=== PATIENT | female | born 1935 | race Caucasian/White ===

== ENCOUNTER 2016-09-10 07:59 | Outpatient (CLI) | payer MEDICARE | END 2016-09-10 08:00 | disposition home or self-care (01) | LOC: BURLAB 07:59 | PROVIDERS: ATTEND Family Medicine | DX: K52.9 Noninfective gastroenteritis and colitis, unspecified (principal) | CPT/HCPCS: 83630; 87015; 87045; 87046; 87177; 87449; 87899 ==

== ENCOUNTER 2016-10-18 09:35 | Outpatient (CLI) | payer MEDICARE | END 2016-10-18 09:36 | disposition home or self-care (01) | LOC: BURLAB 09:35 | PROVIDERS: ATTEND Obstetrics & Gynecology Gynecologic Oncology | DX: D39.8 Neoplasm of uncertain behavior of other specified female genital organs (principal) | CPT/HCPCS: 36415; 86304 ==

== ENCOUNTER 2017-04-14 13:14 | Emergency (ER) | payer MEDICARE ==
[2017-04-14 13:41] LABS: #Basophils 0.1 thou/uL (0.0-0.2); #Eosinphils 0.1 thou/uL (0.0-0.7); #Lymphocytes 2.6 thou/uL (1.20-3.40); #Monocytes 0.6 thou/uL (0.11-0.59); #Neutrophils 5.3 thou/uL (1.40-6.50); %Basophils 0.9 % (0.0-1.0); %Eosinophils 1.3 % (0.0-10.0); %Lymphocytes 29.8 % (21.0-51.0); %Monocytes 6.8 % (0.0-10.0); %Neutrophils 61.2 % (42.0-75.0); Hemoglobin 12.7 g/dL (12.0-16.0); Mean Corpuscular HGB CONC 32.6 g/dL (32.0-36.0); Mean Corpuscular Hemoglobin 28.5 pg (27.0-31.0); Mean Corpuscular Volume 87.4 fl (81.0-99.0); Mean Platelet Volume 8.3 fL (7.4-10.4); Platelet Count 246 thou/uL (130-400); RBC Distribution Width 12.1 % (11.5-14.5); Red Blood Cell (RBC) Count 4.48 mill/uL (4.20-5.40); White Blood Cell (WBC) Count 8.7 thou/uL (4.8-10.8)
[2017-04-14] MEDS ORDERED: Metoprolol Tartrate 5 MG/5 ML VIAL ONE ×2 (13:46→13:59)
[2017-04-14 13:49] LABS: PTT 27.7 SEC (22.9-36.1); Prothrombin Time 13.2 SEC (12.0-14.7)
[2017-04-14 13:50] LABS: D-Dimer Test Less than 0.27 *mcg/mL (0.27-0.43)
[2017-04-14 13:57] LABS: ALT (SGPT) 19 U/L (8-55); AST (SGOT) 28 U/L (5-34); Albumin 4.1 g/dL (3.4-4.8); Alkaline Phosphatase 57 U/L (40-150); Anion Gap 16 mmol/L (10-20); BUN (Urea Nitrogen) 19 mg/dL (9.8-20.1); Bilirubin, Total 0.4 mg/dL (0.2-1.2); Calc. Creatinine Clearance 0 mL/min (70-130); Calcium 10.3 mg/dL (7.8-10.44); Carbon Dioxide 23 mmol/L (23-31); Chloride 102 mmol/L (98-107); Estimated GFR-MDRD 67; Globulin 2.9 g/dL (2.4-3.5); Glucose 146 mg/dL (83-110); Potassium 3.7 mmol/L (3.5-5.1); Sodium 137 mmol/L (136-145)
[2017-04-14 13:58] LABS: CKMB 2.4 ng/mL (0-6.6)
[2017-04-14 14:04] LABS: Troponin I 0.389 ng/mL (< 0.028)
[2017-04-14 14:09] LABS: Critical Call Chem Troponin I 0
[2017-04-14] MEDS ORDERED: Enoxaparin Sodium 100 MG/ML SYRINGE ONE (14:33)
--- NOTE | 2017-04-14 20:50 | RAD ---
PORTABLE CHEST 04/14/17 Comparison is made with a 02/23/16 study done at [facility]. The heart size is unchanged. Dense calcification is seen in the aortic arch as before. There is no v ascular congestion, edema, or pleural effusion. Tendinous calcification is suggested around the righ t shoulder. IMPRESSION: Chronic changes but no acute findings. POS: HOME
== END 2017-04-14 15:11 | disposition short-term general hospital (02) ==
LOC: BURERS 13:14
DX: I21.4 Non-ST elevation (NSTEMI) myocardial infarction (principal); E78.5 Hyperlipidemia, unspecified; I10 Essential (primary) hypertension; Z87.891 Personal history of nicotine dependence; Z79.899 Other long term (current) drug therapy
CPT/HCPCS: 36415; 36416; 71010; 80053; 82553; 83880; 84484; 85025; 85379; 85610; 85730; 93005; 94760; 96372; 96374; 96375; J1650

== ENCOUNTER 2018-01-21 11:38 | Emergency (ER) | payer MEDICARE ==
[2018-01-21 12:32] LABS: PTT 30.1 SEC (22.9-36.1)
[2018-01-21 12:38] LABS: #Basophils 0.1 thou/uL (0.0-0.2); #Eosinphils 0.1 thou/uL (0.0-0.7); #Lymphocytes 2.1 thou/uL (1.20-3.40); #Monocytes 0.5 thou/uL (0.11-0.59); #Neutrophils 3.4 thou/uL (1.40-6.50); %Basophils 1.4 % (0.0-1.0); %Eosinophils 2.2 % (0.0-10.0); %Lymphocytes 33.7 % (21.0-51.0); %Neutrophils 54.7 % (42.0-75.0); ALT (SGPT) 14 U/L (8-55); AST (SGOT) 18 U/L (5-34); Albumin 4.3 g/dL (3.4-4.8); Alkaline Phosphatase 53 U/L (40-150); Anion Gap 14 mmol/L (10-20); BUN (Urea Nitrogen) 17 mg/dL (9.8-20.1); Bilirubin, Total 0.5 mg/dL (0.2-1.2); Calc. Creatinine Clearance 0 mL/min (70-130); Calcium 10.4 mg/dL (7.8-10.44); Carbon Dioxide 26 mmol/L (23-31); Chloride 108 mmol/L (98-107); Estimated GFR-MDRD 73; Globulin 2.5 g/dL (2.4-3.5); Glucose 96 mg/dL (83-110); Hemoglobin 12.3 g/dL (12.0-16.0); Mean Corpuscular HGB CONC 35.3 g/dL (32.0-36.0); Mean Corpuscular Volume 76.6 fL (78.0-98.0); Mean Platelet Volume 7.7 fL (7.4-10.4); Platelet Count 230 thou/uL (130-400); Potassium 3.8 mmol/L (3.5-5.1); Protein, Total 6.8 g/dL (6.0-8.3); RBC Distribution Width 12.9 % (11.5-14.5); Red Blood Cell (RBC) Count 4.57 mill/uL (4.20-5.40); Sodium 144 mmol/L (136-145); White Blood Cell (WBC) Count 6.2 thou/uL (4.8-10.8)
[2018-01-21 12:41] LABS: CKMB 1.6 ng/mL (0-6.6); Troponin I 0.017 ng/mL (< 0.028)
[2018-01-21 13:35] LABS: Bilirubin Negative (Negative); Blood, Urine Negative (Negative); Clarity Clear (Clear); Glucose, Urine (Dipstick) Negative (Negative); Leukocyte Negative (Negative); Nitrite Negative (Negative); Protein, Urine (Dipstick) Negative (Neg-Trace); Urobilinogen 0.2 mg/dL (0.2-1.0)
[2018-01-21 19:08] LABS: Lymphocytes 23 % (21-51); MDiff Complete? YES; Monocytes 6 % (0-10); Neutrophil 70 % (42-75)
--- NOTE | 2018-01-21 19:29 | CT ---
CT FACIAL BONES WITHOUT CONTRAST: 01/21/2018 HISTORY: A spiral CT of the face was performed for evaluation following trauma. TECHNIQUE: Axial slices were acquired and then coronal and sagittal reconstructions were done. FINDINGS: No facial fractures were identified. The orbital rims, nasal bones, zygomatic arches, and mandible a ll appeared intact. The retroorbital areas were normal in appearance as well. The paranasal sinuses were clear, though there was some mild mucosal thickening in the floor of the left maxillary sinus. Prominent sherie bullosa is seen in the left middle nasal turbinate. The nasal septum is midline. IMPRESSION: No acute traumatic findings. POS: HOME
--- NOTE | 2018-01-21 19:33 | CT ---
CT CERVICAL SPINE: 01/21/2018 HISTORY: A spiral CT of the cervical spine was performed for evaluation following trauma. TECHNIQUE: Axial slices were acquired and then coronal and sagittal reconstructions were done afterwards. FINDINGS: There is no sign of fracture, dislocation, or soft tissue swelling. The C1 to dens distance is jaiden l, and the soft tissues are normal in thickness. Findings by level follow: C1-C2: No acute findings. C2-C3: No acute findings. Foramina patent. C3-C4: Very minor left posterior osteophyte, causing no sign of impingement. C4-C5: No acute findings. C5-C6: Uncovertebral osteophytes causing very mild left foraminal stenosis. The disk space is mildl y narrowed. C6-C7: Foramina patent. No significant stenosis. Slight disk space narrowing. C7-T1: No acute findings. T1-T2: No acute findings. The lung apices are clear. An incidental finding on the study is a 1.2 cm cyst or mass in the right lobe of the thyroid gland. This should be followed up with an elective ultrasound. IMPRESSION: 1. Very minor degenerative changes for age. 2. No acute traumatic findings. 3. A 1.2 cm cyst or mass in the right lobe of the thyroid gland. Follow-up ultrasound needed. Findings of all scans discussed with Dr. Meneses at 1306 hours on 01/21/2018, including need for thyroid followup. CODE CR POS: HOME
--- NOTE | 2018-01-21 19:36 | RAD ---
AP PORTABLE CHEST: 01/21/2018 1243 HOURS COMPARISON: 07/01/2017 FINDINGS: Mild cardiomegaly is no different than before. There is no mediastinal widening or shift. The trach ea is midline. The lungs are fully inflated and clear. There are no effusions. No gross fractures are seen, but the patient's osteopenia might mask subtle injuries. There has been a prior median lindsay rnotomy. Arteriosclerotic change is present. IMPRESSION: Mild cardiomegaly, stable. No acute findings. POS: HOME
--- NOTE | 2018-01-21 19:47 | CT ---
CT OF THE BRAIN WITHOUT CONTRAST 01/22/28 Age appropriate atrophy is present. The ventricular sizes are normal and show no shift. No intracrani al bleeding or extra-axial hematoma was seen. There is no sign of stroke, mass, or edema. The calvari um appears intact The sphenoid sinus and mastoid air cells are clear. IMPRESSION: No acute intracranial finding. POS: HOME
== END 2018-01-21 15:11 | disposition short-term general hospital (02) ==
LOC: BURERS 11:38
DX: S00.83XA Contusion of other part of head, initial encounter (principal); H11.32 Conjunctival hemorrhage, left eye; R00.1 Bradycardia, unspecified; I25.2 Old myocardial infarction; E78.5 Hyperlipidemia, unspecified; I10 Essential (primary) hypertension; M19.90 Unspecified osteoarthritis, unspecified site; Z79.899 Other long term (current) drug therapy; Z79.82 Long term (current) use of aspirin; W17.89XA Other fall from one level to another, initial encounter
CPT/HCPCS: 70450; 70486; 71045; 72125; 80053; 81003; 82553; 84484; 85025; 85610; 85730; 93005; 94760

== ENCOUNTER 2018-02-10 10:58 | Outpatient (CLI) | payer MEDICARE ==
--- NOTE | 2018-02-11 07:52 | ULT ---
THYROID ULTRASOUND: 02/10/18 Ultrasonography of the thyroid gland was performed for evaluation of an abnormality seen on a recent cervical CT scan. The right lobe measures 4.0 x 1.6 x 1.8 cm. There indeed is a solid mass present in the mid portion o f the right lobe that measures 1.4 x 1.1 x 1.2 cm. Its margins are not extremely discrete. The left l obe measures 3.8 x 1.7 x 1.4 cm. There is a small 5 mm cyst in its inferior portion that is poorly se en. At least one image raises the question of a tiny echogenicity at its margin such as might be seen in a colloid cyst. The significance of this finding is thought to be low. IMPRESSION: 1.4 cm poorly marginated solid mass right lobe of the thyroid gland. Further workup recommended as th e appearance is not classically benign. Code T POS: HOME
== END 2018-02-10 10:59 | disposition home or self-care (01) ==
LOC: BURULT 10:58
PROVIDERS: ATTEND Family Medicine
DX: E07.9 Disorder of thyroid, unspecified (principal)
CPT/HCPCS: 76536